=== PATIENT | male | born 2000 | race Caucasian/White ===

== ENCOUNTER 2023-03-21 17:42 | Emergency (ER) | payer OTHER ==
[~2023-03-21] VITALS: Ht 198.1 cm; Wt 95.8 kg
[2023-03-21] MEDS ORDERED: BACITRACIN OINTMENT 30GM TUBE TOP STA (20:35)
[2023-03-21] MEDS ORDERED: BACI500O8 TOP (20:52)
[2023-03-21 21:19] VITALS: BP 127/73; TEMP 98.5; O2SAT 100
== END 2023-03-21 21:30 | disposition home or self-care (01) ==
LOC: M ED 17:42
DX: T24.111A Burn of first degree of right thigh, initial encounter (principal); T24.112A Burn of first degree of left thigh, initial encounter; X12.XXXA Contact with other hot fluids, initial encounter; Y99.1 Military activity; Z79.899 Other long term (current) drug therapy; T31.0 Burns involving less than 10% of body surface

== ENCOUNTER 2024-04-20 12:49 | Emergency (ER) | payer OTHER ==
[~2024-04-20] VITALS: Ht 195.6 cm; Wt 104.1 kg
[~2024-04-20 12:49] MED LIST: BACI500O8 TOP
[2024-04-20 14:04] LABS: BASO # 0.1 10^3/uL (0.0-0.2); BASO % 0.6 % (0.0-1.0); EOS % 0.4 % (0.0-3.0); HEMATOCRIT 43.7 % (42.0-52.0); HEMOGLOBIN 14.6 g/dl (13.5-17.5); LYMPH # 1.6 10^3/uL (1.5-5.0); LYMPH % 16.8 % (24.0-44.0); MEAN CORPUSCULAR HGB CONC 33.4 g/dl (32.0-36.5); MEAN CORPUSCULAR VOLUME 86.9 fl (80.0-96.0); MONO # 0.9 10^3/uL (0.0-0.8); MONO % 9.9 % (2.0-8.0); NEUTROPHILS # 6.7 10^3/uL (1.5-8.5); NEUTROPHILS % 72.1 % (36.0-66.0); PLATELET COUNT, AUTOMATED 267 10^3/uL (150-450); RED BLOOD COUNT 5.03 10^6/uL (4.30-6.10); WHITE BLOOD COUNT 9.3 10^3/uL (4.0-10.0)
[2024-04-20 14:31] LABS: ALBUMIN 4.3 G/DL (3.2-5.2); ALKALINE PHOSPHATASE 97 U/L (46-116); ALT/SGPT 22 U/L (7.0-40); AST/SGOT 35 U/L (<34); BILIRUBIN,TOTAL 0.5 MG/DL (0.3-1.2); BLOOD UREA NITROGEN 13 MG/DL (9-23); CALCIUM LEVEL 9.4 MG/DL (8.5-10.1); CARBON DIOXIDE LEVEL 29 MMOL/L (20-31); CHLORIDE LEVEL 108 MMOL/L (98-107); CREATININE FOR GFR 0.95 MG/DL (0.70-1.30); GLOMERULAR FILTRATION RATE > 60.0 (>60); GLUCOSE, FASTING 64 MG/DL (60-100); SODIUM LEVEL 141 MMOL/L (136-145); TOTAL PROTEIN 7.2 G/DL (5.7-8.2)
[2024-04-20 17:05] VITALS: BP 125/66; TEMP 97.8; O2SAT 99
[2024-04-20] MEDS: IBUPROFEN 600MG TAB PO ONE (17:27)
== END 2024-04-20 17:29 | disposition home or self-care (01) ==
LOC: M ED 12:49
DX: R55 Syncope and collapse (principal); Z91.018 Allergy to other foods

== ENCOUNTER → 2024-06-30 | Outpatient (CLI) | payer OTHER ==
[~2024-06-30] MED LIST changes: +ISOVUE-370 76% 100ML VIAL ONE
== END ==
LOC: M RAD 07:22
PROVIDERS: ATTEND Otolaryngology
DX: R22.1 Localized swelling, mass and lump, neck (principal)
CPT/HCPCS: 70491; Q9967

== ENCOUNTER 2024-10-19 08:59 | Day surgery (SDC) | payer OTHER ==
[~2024-10-19] VITALS: Ht 195.6 cm; Wt 99.9 kg
[~2024-10-19 08:59] MED LIST changes: -ISOVUE-370 76% 100ML VIAL ONE
[2024-10-19] MEDS ORDERED: NS (Normal Saline) 0.9% 1,000 ML IV SCH (09:10)
[2024-10-19] MEDS ORDERED: LIDOCAINE 2% 100MG/5ML SDV (FOR ANES.) As Ordered ONE (10:14)
[2024-10-19] MEDS ORDERED: propofoL 200 MG/20 ML VIAL As Ordered ONE (10:14)
[2024-10-19] MEDS ORDERED: ACETAMINOPHEN 1000MG/100ML IV BAG As Ordered ONE (10:16)
[2024-10-19] MEDS ORDERED: fentaNYL 100 MCG/2 ML INJECTION As Ordered ONE (10:24)
[2024-10-19] MEDS ORDERED: MIDAZOLAM INJ 2MG/2ML VIAL As Ordered ONE (10:25)
[2024-10-19] MEDS ORDERED: ONDANSETRON 4MG 2ML VIAL As Ordered ONE (11:12)
[2024-10-19] MEDS ORDERED: ePHEDrine SULFATE 25 MG/5 ML(5MG/ML) SYRINGE As Ordered ONE (11:38)
[2024-10-19] MEDS: LIDOCAINE W/EPINEPHRINE 1% 20ML VIAL As Ordered ONE (11:50)
[2024-10-19] MEDS: POLYSPORIN TOPICAL OINTMENT 15GM As Ordered ONE (11:57)
[2024-10-19 12:25] VITALS: BP 103/63; TEMP 97; O2SAT 98
== END 2024-10-19 12:25 | disposition home or self-care (01) ==
LOC: M SDC 08:59
PROVIDERS: ATTEND Otolaryngology
DX: L72.0 Epidermal cyst (principal); Z88.8 Allergy status to other drugs, medicaments and biological substances
CPT/HCPCS: 11422; 88305; J0131; J1100; J2250; J2405; J3010